=== PATIENT | female | born 1950 | race Caucasian/White ===

== ENCOUNTER 2020-12-31 12:52 | Outpatient (CLI) | payer MEDICARE, SELFPAY ==
--- NOTE | ~2020-12-31 | DEXA_ITS ---
Bone Density Report Name: Lacy Parker Age: 70 Sex: Female Ethnicity: White Date of : 1950 Indication: postmenopausal; hysterectomy; Referring Provider: Hosea Kaplan Study: Bone densitometry was performed. Exam Date: December 31, 2020 Accession number: [id number] Bone Density: Region BMD T-score Z-score Classification AP Spine (L1, L2) 0.912 -0.6 1.3 Normal Femoral Neck (Left) 0.636 -1.9 -0.2 Osteopenia Total Hip (Left) 0.756 -1.5 0.0 Osteopenia Total Hip Bilateral Avg 0.754 -1.6 -0.1 Osteopenia Femoral Neck (Right) 0.637 -1.9 -0.1 Osteopenia Total Hip (Right) 0.751 -1.6 -0.1 Osteopenia World Health Organization criteria for BMD impression classify patients as: Normal (T-score at or above -1.0), Osteopenia (T-score between -1.0 and -2.5), or Osteoporosis (T-score at or below -2.5). 10-year Fracture Risk(1): Major Osteoporotic Fracture 11% Hip Fracture 2.0% Reported Risk Factors: [place] (), Neck BMD=0.636, BMI=22.5 (1) FRAX(R) Version 3.08. Fracture probability calculated for an untreated patient. Fracture probability may be lower if the patient has received treatment. Previous Exams: Region Exam Age BMD T-score BMD Change BMD Change Date g/cm2 vs Baseline vs Previous AP Spine(L1, L2) 12/31/2020 70 0.912 -0.6 -0.112(-10.9%) -0.112(-10.9%) 06/11/2009 58 1.025 0.4 Total Hip(Left) 12/31/2020 70 0.756 -1.5 -0.105(-12.2%) -0.105(-12.2%) 06/11/2009 58 0.861 -0.7 Total Hip(Right) 12/31/2020 70 0.751 -1.6 -0.127(-14.5%) -0.127(-14.5%) 06/11/2009 58 0.878 -0.5 *Denotes significance at 95% confidence level, LSC for AP Spine = 0.022 g/cm2, LSC for Total Hip = 0.027 g/cm2 Clinical Information Provided by Patient: Has used the following medications: Vitamin D Has the following medical conditions: Hysterectomy Patient maximum height was 61 Menopause Age: 56 Drinks caffeinated beverages Onset of menses at age 11 Number of children 3 Impression: The patient has low bone mass, based on the Left Femoral Neck T-score. The patient has an estimated ten-year risk of hip fracture of 2% and an estimated ten-year risk of major fracture of 11%, based on the WHO FRAX algorithm. No significant bone loss was observed. Discussion: BONE DENSITY IS LOW AT ONE OR MORE SKELETAL SITES. This patient's lowest T-score is low at one or more skeletal sites. It meets the World Health Organization's (WHO) criteria for ?low harjit
== END 2020-12-31 12:53 | disposition home or self-care (01) ==
LOC: ANHIMG 12:53
PROVIDERS: PCP Family Medicine; Visit Provider Family Medicine
DX: Z78.0 Asymptomatic menopausal state (principal); M85.852 Other specified disorders of bone density and structure, left thigh; M85.851 Other specified disorders of bone density and structure, right thigh
CPT/HCPCS: 77080

== ENCOUNTER 2023-05-26 15:03 | Outpatient (CLI) | payer MEDICARE, SELFPAY ==
--- NOTE | ~2023-05-26 | DEXA_ITS ---
Bone Density Report Name: VJ RAMSAY Age: 72 Sex: Female Ethnicity: White Date of : 1950 Indication: osteopenia; height loss; hysterectomy; Referring Provider: BALTAZAR ANN Study: Bone densitometry was performed. Exam Date: May 26, 2023 Accession number: [id number] Bone Density: Region BMD T-score Z-score Classification AP Spine(L1, L2) 0.930 -0.4 1.6 Normal Femoral Neck (Left) 0.624 -2.0 -0.1 Osteopenia Total Hip (Left) 0.739 -1.7 -0.1 Osteopenia Femoral Neck (Right) 0.640 -1.9 0.0 Osteopenia Total Hip (Right) 0.754 -1.5 0.1 Osteopenia Total Hip Mean 0.746 -1.6 0.0 Osteopenia World Health Organization criteria for BMD impression classify patients as: Normal (T-score at or above -1.0), Osteopenia (T-score between -1.0 and -2.5), or Osteoporosis (T-score at or below -2.5). 10-year Fracture Risk(1): Major Osteoporotic Fracture 11% Hip Fracture 2.3% Reported Risk Factors: [place] (), Neck BMD=0.624, BMI=21.0 (1) FRAX(R) Version 3.08. Fracture probability calculated for an untreated patient. Fracture probability may be lower if the patient has received treatment. Previous Exams: Region Exam Age BMD T-score BMD Change BMD Change Date g/cm2 vs Baseline vs Previous AP Spine (L1-L2) 05/26/2023 72 0.930 -0.4 0.018 (2.0%)# 0.018 (2.0%)# 12/31/2020 70 0.912 -0.6 Total Hip(Left) 05/26/2023 72 0.739 -1.7 -0.017 (-2.3%) -0.017 (-2.3%) 12/31/2020 70 0.756 -1.5 Total Hip(Right) 05/26/2023 72 0.754 -1.5 0.003 (0.4%)# 0.003 (0.4%)# 12/31/2020 70 0.751 -1.6 *Denotes significance at 95% confidence level, LSC for AP Spine = 0.022 g/cm2, LSC for Total Hip = 0.027 g/cm2 # Denotes dissimilar scan types or analysis methods Clinical Information Provided by Patient: Has used the following medications: Vitamin D, Calcium Has the following medical conditions: Hysterectomy Patient maximum height was 61.5 Menopause Age: 56 Drinks caffeinated beverages Onset of menses at age [age] Number of children 3 Impression: The patient has low bone mass, based on the Left Femoral Neck T-score. The patient has an estimated ten-year risk of hip fracture of 2.3% and an estimated ten-year risk of major fracture of 11%, based on the WHO FRAX algorithm. No significant bone loss was observed. Discussion: BONE DENSITY IS LOW AT ONE OR MORE SKELETAL SITES. This patient's lowest T-score is low at one or more s
== END 2023-05-26 15:04 | disposition home or self-care (01) ==
PROVIDERS: PCP Family Medicine; Visit Provider Family Medicine
DX: Z78.0 Asymptomatic menopausal state (principal); M85.852 Other specified disorders of bone density and structure, left thigh; M85.851 Other specified disorders of bone density and structure, right thigh
CPT/HCPCS: 77080

== ENCOUNTER 2024-09-13 02:10 | Day surgery (SDC) | payer MEDICARE, SELFPAY ==
[2024-09-03 08:48] VITALS: BMI 20.8
--- OUTSIDE RECORDS SUMMARY | 2024-09-13 02:18 | XMS_ITS | Clinical Summary ---
Author Organization [facility] Address [address] [place] [address] Care Team Providers Care Lead Web Application Developer Name Role Phone Hosea Kaplan MD Primary Care Provider Encounters Date Type Department Care Team Description 08/16/2024 12:48 PM CDT - 08/16/2024 11:59 PM CDT Hospital Encounter [facility] Breast Imaging [facility] [address], [place] [id number] Screening mammogram, encounter for Discharge Disposition: Discharge to home or self care from Last 3 Months Family History Medical History Relation Name Comments Breast cancer Mother Relation Name Status Comments Mother Social History Tobacco Use Types Packs/Day Years Used Date Smoking Tobacco: Never Assessed Comments No Sex and Gender Information Value Date Recorded Sex Assigned at Not on file 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 Gender Identity Not on file Sexual Orientation Not on file Obstetrics History Para Term AB IAB SAB Ectopic Multiple Livin g Live Births 3 3 3 Date Outcome GA Total Labor Labor/2nd/3rd Weight Sex Type Anes PTL Shiela A1 A5 Name Clin Term Term Term Last Filed Vital Signs Vital Sign Reading Time Taken Comments Blood Pressure - - Pulse - - Temperature - - Respiratory Rate - - Oxygen Saturation - - Inhaled Oxygen Concentration - - Weight 49.9 kg (110 lb) 08/16/2024 1:04 PM CDT Height 154.9 cm (5' 1) 08/16/2024 1:04 PM CDT Body Mass Index 20.78 08/16/2024 1:04 PM CDT Plan of Treatment Health Maintenance Due Date Last Done Comments Colon Cancer Screening-Colonoscopy 1950 Depression Screening 1950 Fall Risk Assessment 1950 Hepatitis C Screening 1950 Osteoporosis Screening-Bone Density Scan 1950 DTaP/Tdap/Td Vaccine (1 - Tdap) 06/22/1962 Hepatitis B Screening 06/22/1969 Pneumococcal vaccine 65+ (1 of 1 - PCV) 06/22/2001 Zoster Vaccine (1 of 2) 06/22/2001 Well Visit 65+ 06/22/2016 Influenza Vaccine (Season Ended) 2024 Breast Cancer Screening-Mammogram 08/16/2025 08/16/2024, 08/15/2023, 08/06/2022, Additional history exists Procedures Procedure Name Priority Date/Time Associated Diagnosis Comments SCREENING MAMMOGRAM BILATERAL W RON Schedule Routine, Read Routine (OP Routine) 08/16/2024 1:11 PM CDT Screening mammogram, encounter for from Last 3 Months Results * Screening Mammogram Bilateral W Ron (08/16/2024 1:11 PM CDT) Anatomical Region Laterality Modality Breast Bilateral Mammography Impressions 08/17/2024 1:03 PM CDT Bilateral No evidence of malignancy in either breast. OVERALL BI-RADS FINAL ASSESSMENT: 1 - Negative RECOMMENDATION: Recommend bilateral annual screening mammography. Narrative 08/17/2024 1:03 PM CDT EXAMINATION: Screening Mammogram Bilateral W Ron: 08/16/2024 COMPARISON: Relevant prior studies available at the time of interpretation were reviewed. TECHNIQUE: Mammography was performed with 2D and digital breast tomosynthesis (DBT) images. CAD was utilized. BREAST PARENCHYMAL COMPOSITION: There are scattered areas of fibroglandular density. FINDINGS: Bilateral There is no suspicious mass, calcification, or architectural distortion in either breast. There are no significant changes from the prior study. us Self Screening Mammogram IMG MAMMO PROCEDURES Fi nal Result from Last 3 Months Insurance [facility] MEDICARE ADVANTAGE [facility] ADVANTAGE [facility] MEDICARE ADVANTAGE Care Teams Lead Web Application Developer Relationship Specialty Start Date End Date Hosea Kaplan MD [address] [facility] [address] [place] [address] PCP - General 04/15/17
--- OUTSIDE RECORDS SUMMARY | 2024-09-13 02:18 | XMS_ITS | Referral Summary ---
Author Organization [facility] Address [address] [place] [address] Care Team Providers Care Visual Lead Name Role Phone Hosea Kaplan MD Primary Care Provider Encounters Date Type Department Care Team Description 08/16/2024 12:48 PM CDT - 08/16/2024 11:59 PM CDT Hospital Encounter [facility] ([facility]) [address], [place] [phone] Screening mammogram, encounter for Discharge Disposition: Discharge to home or self care from Last 3 Months Social History Tobacco Use Types Packs/Day Years Used Date Smoking Tobacco: Never Assessed Comments No Sex and Gender Information Value Date Recorded Sex Assigned at Not on file 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[employer] Gender Identity Not on file Sexual Orientation Not on file Last Filed Vital Signs Vital Sign Reading Time Taken Comments Blood Pressure - - Pulse - - Temperature - - Respiratory Rate - - Oxygen Saturation - - Inhaled Oxygen Concentration - - Weight 49.9 kg (110 lb) 08/16/2024 1:04 PM CDT Height 154.9 cm (5' 1) 08/16/2024 1:04 PM CDT Body Mass Index 20.78 08/16/2024 1:04 PM CDT Plan of Treatment Not on file Procedures Procedure Name Priority Date/Time Associated Diagnosis [...] nal Result from Last 3 Months Insurance [facility] MEDICARE ADVANTAGE [facility] MEDICARE ADVANTAGE [facility] MEDICARE ADVANTAGE Care Teams Visual Lead Relationship Specialty Start Date End Date Hosea Kaplan MD [address] [facility] [address] [place] [address] PCP - General 04/15/17
--- OUTSIDE RECORDS SUMMARY | 2024-09-13 02:18 | XMS_ITS | Continuity of Care Document ---
Author Organization [facility] Address [address] [facility] [address] [place] [address] Phone Care Team Providers Care Principal Administrative Clerk Name Role Phone Bryson Botello MD, MD Unavailable Unavailable Procedures Procedure Date Yag PI Yag PI OFFICE/OUTPATIENT VISIT, [facility] Advance Directives Directive Yes / No Effective Date File Name No Information Encounters Encounter Description Practice Location Reason(s) For Visit Diagnoses Date Provider Providers Copied on Encounter [facility], [address], [place], [place], [id number], tel:[phone] [address] [place] [address] [facility] No Information 5 Rosmery Massey. [address], [place], [place], [id number] , [place]. tel:[phone] Referring Provider: Bryson Benites, [address], [place], [address] . tel:[phone] [facility], [address], [place], [place], [address], [place] tel:[phone] [address] [place] [address] [facility] No Information 5 Rosmery Massey. [address], [place], [place], [address] , [place]. [phone] Referring Provider: Bryson Benites, [address], [place], [address] . tel:[phone] OFFICE/OUTPA TIENT VISIT, NEW [facility], [address], [place], [place], [id number], [place] tel:[phone] [facility] No Information Rosmery Massey. [address], [place], [place], [address] , [place]. tel: [phone] Referring Provider: Bryson Botello MD P, [address], [place], [address] . tel:[phone] Family History Family Member Type Diagnosis Age At Onset No Information Payers Payer name Insurance type Covered constitution party ID So wild(s) [facility] [id number] Social History Type Description Quantity Date Captured Comments Sex Female Smoking Status No Information Chief Complaint And Reason For Visit No Information Reason For Referral Reason For Referral No Information History Of Present Illness Encounter Date Complaint History Of Prese nt Illness No Information Functional Status Date Functional Assessmen t No Information Instructions Date Instruction Additional Infor mation No Information Assessments Type Assessment Date No Information Patient Care Teams Name Effective Dates (start - stop) Status Members No Information
[2024-09-13 13:04] VITALS: BP 149/71; PULSE 62; RESP 18; TEMP 36.7; O2SAT 100
[2024-09-13] MEDS: LACTATED RINGERS 1,000 ML 150 ML IV CONT (13:18)
--- NOTE | 2024-09-13 13:43 | WPDANESEPPF ---
Anes - Initial Pre Proc Eval Procedure: Operation Date: 09/13/24 14:30 Proposed Procedures p Colonoscopy - Sincere Neal MD Date/Time: 09/13/24 13:43 Surgeon: Sincere Neal MD Pre Op Diagnosis: Other fecal abnormalities Patient Data Age: 74 Gender: F Height: 1.55 m Weight: 47.8 kg Last Vital Signs Temp 98.0 F 09/13/24 13:04 Pulse 62 09/13/24 13:04 Resp 18 09/13/24 13:04 BP 149/71 H 09/13/24 13:04 Pulse Ox 100 09/13/24 13:04 O2 Del Method Room Air 09/13/24 13:04 Allergies Allergy/AdvReac Type Severity Reaction Status Date / Time Penicillins Allergy Unknown Unknown Verified 09/03/24 08:47 Home Medications ?Medication ?Instructions ?Recorded ?Confirmed ?Type No Home Medications 09/03/24 09/03/24 History Patient hx anesthesia problems: none Family hx anesthesia problems: none Results Review: All pre-operative results and documents have been reviewed as part of the pre-operative evaluation. 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 Cystoid macular edema Osteopenia HLD (hyperlipidemia) Surgical History Surgical History History of rhinoplasty x 2 History of hysterectomy Family History Family History Mother Family history of malignant neoplasm of breast in first degree relative Social History Social History Smoking status: Never smoker Second hand tobacco smoke exposure: No Alcohol intake: never Substance use: never Substance use type: does not use Living arrangements: with family Occupation/Education: retired Gender identity (if verbalized by the patient): Female Sexual Orientation (if Verbalized by the Patient): Straight or Heterosexual Anes - Eval Final PreProcedure Day of Procedure 09/13/24 13:43 Patient weight: normal Lungs: normal air movement Airway: Mallampati scale class II Neurological: alert and oriented Last oral intake: >/= 8 hours ASA classification: I Emergent: no Anesthetic plan: proceed Anesthesia type and monitoring: general GIVS and standard monitoring Results Review: All pre-operative results and documents have been reviewed as part of the pre-operative evaluation. Borderline HTN and hyperlipidemia but not treatment based on labs and nml home values. Excellent exercise tolerance, no cp or sob w workouts. Informed Consent: The patient's anesthetic plan and its attendant risks and benefits were discussed with the patient/family/POA. Questions were solicited and answers provided to the satisfaction of the patient/family/POA.
--- NOTE | 2024-09-13 13:51 | PM.HPGS ---
History of Present Illness History of Present Illness Consent: Risks, benefits, and alternatives have been discussed and questions answered. Patient agrees to proceed with procedure. 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 Cystoid macular edema Osteopenia HLD (hyperlipidemia) Surgical History Surgical History History of rhinoplasty x 2 History of hysterectomy Family History Family History Mother Family history of malignant neoplasm of breast in first degree relative Social History Social History Smoking status: Never smoker Second hand tobacco smoke exposure: No Alcohol intake: never Substance use: never Substance use type: does not use Living arrangements: with family Occupation/Education: retired Gender identity (if verbalized by the patient): Female Sexual Orientation (if Verbalized by the Patient): Straight or Heterosexual Meds Home Medications and Allergies Home Medications ?Medication ?Instructions ?Recorded ?Confirmed ?Type No Home Medications 09/03/24 09/03/24 History Allergies Allergy/AdvReac Type Severity Reaction Status Date / Time Penicillins Allergy Unknown Unknown Verified 09/03/24 08:47 Vital Signs Vital Signs - 24 hr 09/13/24 13:04 Temperature 98.0 F Pulse Rate 62 Respiratory Rate 18 Blood Pressure 149/71 H Pulse Oximetry 100 Oxygen Delivery Room Air Exam Const: General: comfortable and no acute distress HENMT: Face/Nose/Sinus: Normal nares present Eyes: General: appearance normal, both eyes and all related structures Neck: Neck: no JVD Resp: Auscultation: clear to auscultation bilaterally Cardio: Rate: regular rate Rhythm: regular rhythm GI: Inspection: non-distended GI Palp: Yes Soft to palpation Skin: General skin exam: normal color Neuro: Speech: normal speech Extrem: General: normal to inspection Psych: Mental Status: mental status grossly normal Assessment and Plan Assessment and plan (1) Positive FIT (fecal immunochemical test): Code(s): R19.5 - Other fecal abnormalities Status: Acute Assessment and Plan: colonoscopy
--- NOTE | 2024-09-13 14:02 | S_PTH ---
PATIENT: Lacy Parker LOC: [facility]#:[id number] AGE/SX: 74/F ROOM: RE09/13/[address]: Sincere Neal MD : 1950 BED: DIS: 09/13/2024 SPEC #: [id number] RECD: 09/14/24 07:58 STATUS: DAVONTE REJunior #: [id number] ROSMERY: 09/13/24 14:[address]: Sincere Neal DEPT: [facility] Surgical RECD BY: Dona Srinivasan ENTERED: 09/14/24 07:58 SP TYPE: Surgical OTHR DR: Hosea Kaplan MD Tissues: A - Colon Polypectomy B - Colon Polypectomy Procedures: Hematoxylin and Eosin Stain Gross and Microscopic Level 4
[2024-09-13 14:10] VITALS: BP 148/59; PULSE 69; RESP 15; O2SAT 100
[2024-09-13 14:20] VITALS: BP 141/64; PULSE 71; RESP 19; O2SAT 100
== END 2024-09-13 14:44 | disposition home or self-care (01) ==
PROVIDERS: PCP Family Medicine; Referring Provider Physician Assistant; Visit Provider Internal Medicine Gastroenterology
PROC: 0DJD8ZZ Inspection of Lower Intestinal Tract, Via Natural or Artificial Opening Endoscopic (ICD-10-PCS; CPT 45378; principal; 2024-09-13 14:30)
DX: R19.5 Other fecal abnormalities (principal); D12.4 Benign neoplasm of descending colon; K63.5 Polyp of colon; K57.30 Diverticulosis of large intestine without perforation or abscess without bleeding; K64.8 Other hemorrhoids
CPT/HCPCS: 45385; 88305; J2003; J2704; J7120